=== PATIENT | female | born 1995 | race Caucasian/White ===

== ENCOUNTER 2017-03-24 00:37 | Emergency (ER) | payer BC, SELFPAY | END 2017-03-24 01:35 | disposition home or self-care (01) | LOC: ERS 00:37 | DX: J06.9 Acute upper respiratory infection, unspecified (principal); R04.0 Epistaxis; Z85.841 Personal history of malignant neoplasm of brain | CPT/HCPCS: 99283 ==

== ENCOUNTER 2019-09-18 15:09 | Emergency (ER) | payer OTHER ==
[2019-09-18] MEDS ORDERED: Metoclopramide HCl 10 MG/2 ML VIAL ONE (15:54)
[2019-09-18] MEDS ORDERED: Ketorolac Tromethamine 30 MG/ML VIAL ONE (15:54)
--- NOTE | 2019-09-18 16:32 | CT ---
CT BRAIN WITHOUT CONTRAST: HISTORY: Headache. Previous left parietal tumor removal COMPARISON: 12/08/2006 FINDINGS: There are postop changes in the left miiqybht-habemyz-imnaevaat and left cerebellar hemispheric regio ns. No evidence of acute infarct, hemorrhage, midline shift or abnormal extra-axial fluid collections is seen. The ventricular size is appropriate and the basilar cisterns are patent. The bon y calvarium is intact. The visualized paranasal sinuses and mastoid air cells are well aerated. IMPRESSION: No CT evidence of acute intracranial process. Further evaluation with contrast-enhanced MRI would be helpful.
== END 2019-09-18 17:29 | disposition home or self-care (01) ==
LOC: ERS 15:09
DX: G43.909 Migraine, unspecified, not intractable, without status migrainosus (principal)
CPT/HCPCS: 70450; 96365; 96375; J1885; J2765

== ENCOUNTER 2020-01-21 12:58 | Outpatient (CLI) | payer OTHER ==
[~2020-01-21 12:58] MED LIST: Magnevist 469MG/ML 20 ML VIAL ONE
--- NOTE | 2020-01-21 14:35 | MRI ---
Brain MRI with and without contrast: 01/21/2020 COMPARISON: None HISTORY: Left parietal brain tumor removal, history of astrocytoma TECHNIQUE: Multiplanar sequence MR imaging of the brain provided with and without contrast FINDINGS: The diffusion weighted imaging demonstrates no evidence for acute infarction. The axial gra dient echo imaging demonstrates no evidence for intracranial hemorrhage. There is mild polypoid mucosal thickening within the maxillary sinus on the left. There are a few opacified mastoid air cells on the right. There is encephalomalacia involving the left cerebellar hemisphere, primarily anteriorly and laterall y. There is also encephalomalacia involving the posterior left occipital and parietal lobe. Bilateral inferior anterior temporal lobes in the region of the middle cranial fossa appear abnormal with areas of cortical thickening with areas of subcortical T2 and FLAIR hyperintensity as well as a fused to focal areas of subcortical cystic change within the left temporal lobe measuring up to 7 m m. 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 Arterial flow voids at the axial level of the skull base appear grossly unremarkable on the T2-weight ed imaging. There is slight enlargement of the cerebral peduncle on the left, otherwise unremarkable. There are m ultiple subcentimeter foci of T2 hyperintensity within the anterior aspect of the abundio to the left of midline which could be on the basis of Virchow-Nik spaces. The postcontrast imaging demonstrates a small focus of enhancement involving the medial aspect of the left occipital lobe measuring 5 mm, best seen on axial image 12 series 10. The postcontrast imaging demonstrates no additional areas of abnormal enhancement. There are areas of nonspecific increased T2 and FLAIR signal within the right middle cerebellar pedun masood measuring 4 mm and within the posterior inferior aspect of the right cerebellar hemisphere measuring 1.1 cm. IMPRESSION: 5 mm focus of enhancement involving the medial aspect of the left occipital lobe with adj acent T2 and FLAIR hyperintensity suggesting mild vasogenic edema. This is suspicious for residual/recurrent tumor given provided history of tumor resection. Adjacent encephalomalacia noted s uggesting prior tumor treatment. No calvarial defects are seen on this exam. There are areas of signal abnormality within bilateral temporal lobes, the left cerebral peduncle and left aspect of the abundio, as well as bilateral cerebellar hemispheres. 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 Neurosurgical consultation suggested. Correlation with prior MRIs if made available would be quite he lpful.
== END 2020-01-21 12:59 | disposition home or self-care (01) ==
LOC: MRI 12:58
PROVIDERS: ATTEND Psychiatry & Neurology Neurology
DX: C71.9 Malignant neoplasm of brain, unspecified (principal); R90.89 Other abnormal findings on diagnostic imaging of central nervous system; G93.89 Other specified disorders of brain
CPT/HCPCS: 70553; A9579

== ENCOUNTER 2023-02-01 10:19 | Outpatient (CLI) | payer OTHER | END 2023-02-01 10:20 | disposition home or self-care (01) | LOC: BICULT 10:19 | PROVIDERS: ATTEND Nurse Practitioner Family | DX: N63.21 Unspecified lump in the left breast, upper outer quadrant (principal) ==